=== PATIENT | female | born 1990 | race Asian ===

== ENCOUNTER 2019-05-04 13:47 | Emergency (ER) | payer OTHER ==
--- NOTE | 2019-05-04 14:37 | UC ---
Dental HPI - HPI Summary HPI Summary: 29 year old female with no PMH presents with facial swelling, mild pain with chewing x 12 hours, worsening this AM. no rashes. H/O wisdow tooth extraction ~ 1 month ago, on abx x 5 days post-op, no complications, no problems. - History of Current Complaint Chief Complaint: UCDentalProblem Stated Complaint: LT FACEAL SWELLING Time Seen by Provider: 05/04/19 14:02 Hx Obtained From: Patient ?: No Onset/Duration: Sudden Onset, Lasting Hours Severity: Mild Pain Intensity: 3 Pain Scale Used: 0-10 Numeric Aggravating Factor(s): Cold Related History: Previous Dental Care on Same Tooth - wisdom tooth extraction ~ 1 month ago - Allergies/Home Medications Allergies/Adverse Reactions: Allergies Allergy/AdvReac Type Severity Reaction Status Date / Time No Known Allergies Allergy Verified 05/04/19 14:09 PMH/Surg Hx/FS Hx/Imm Hx Previously Healthy: Yes - Surgical History Surgical History: None - Social History Alcohol Use: Rare Substance Use Type: None Smoking Status (MU): Never Smoked Tobacco Review of Systems All Other Systems Reviewed And Are Negative: Yes Constitutional: Positive: Negative Skin: Positive: Other - facial swelling ENT: Positive: Dental Pain Is Patient Immunocompromised?: No Physical Exam Triage Information Reviewed: Yes Appearance: Well-Appearing, No Pain Distress, Well-Nourished Vital Signs: Initial Vital Signs Temp 97.6 F 05/04/19 14:04 Pulse 81 05/04/19 14:04 Resp 18 05/04/19 14:04 BP 104/52 05/04/19 14:04 Pulse Ox 100 05/04/19 14:04 Vital Signs Reviewed: Yes Eyes: Positive: Conjunctiva Clear ENT: Positive: Pharynx normal, Uvula midline, Other - no rashes noted. Negative : Pharyngeal erythema, Sinus tenderness Dental: Positive: Other: - multipe filled cavities. mild erythema at site of wisdom tooth extraction with tenderness t opercussion, no drainage noted, no fluctuance. minimal streaking to lateral cheek. MOderate tenderness over L cheek with TTP over prox mandible. no pain with opening/ closing jaw. Neck: Positive: Supple, Nontender. Negative: Nuchal Rigidity, Enlarged Nodes @ Neurological Exam: Normal Psychological Exam: Normal Skin Exam: Normal Dental Complaint Course/Dx - Course Course Of Treatment: infection at extraction site, abx given, follow up with PCP in AM for repeat evaluation, go to ER with worsening symptoms. - Differential Dx/Diagnosis Differential Diagnosis/Dx: Dental Abscess, Dental Caries, Fractured Tooth Provider Diagnosis: Dental infection Discharge - Sign-Out/Discharge Documenting (check all that apply): Patient Departure All imaging exams completed and their final reports reviewed: No Studies - Discharge Plan Condition: Good Disposition: HOME Prescriptions: Amoxicillin/Clavulanate TAB* [Augmentin TAB 875*] 875 mg PO BID #20 tab Patient Education Materials: Toothache (ED) Referrals: No Primary Care Phys,NOPCP [Primary Care Provider] - Additional Instructions: - Antibiotics as directed - Follow up tristan Carmichael tomorrow for re-evaluation - GO to ER with worsening swelling, pain, fever - Make an appt to be seen by your dentist/ a Dentist within 3-4 weeks - Antibiotics x 10 days - Billing Disposition and Condition Condition: GOOD Disposition: Home
== END 2019-05-04 14:40 | disposition home or self-care (01) ==
LOC: UCEAST 13:47
DX: K04.7 Periapical abscess without sinus (principal)
CPT/HCPCS: 99202; G0463